=== PATIENT | male | born 1995 | race Caucasian/White ===

== ENCOUNTER 2022-01-25 18:10 | Emergency (ER) | payer MEDICAID ==
[~2022-01-25] VITALS: Ht 167.6 cm; Wt 86.2 kg
--- NOTE | 2022-01-25 18:50 | NUR ---
THE PATIENT IS SENT BY URGENT CARE FOR RIGHT 4TH FINGER AND LEFT 2ND FINGER LAC. OBTAINED LAC WITH GEOSPATIAL TECHNOLOGIST AT WORK. PAIN LEVEL 4/10. PT ON RA NO SIGNS OF DISTRESS OR LABORED BREATHING. PT A/OX3. WILL CONTINUE TO MONITOR.
--- NOTE | 2022-01-25 19:19 | NUR ---
JESICA FORTE AT PT'S BEDSIDE
--- NOTE | 2022-01-25 19:21 | NUR ---
REPORT GIVEN TO ANNETTE.
[2022-01-25] MEDS ORDERED: GELATIN SPONGE,ABSORBABLE 1 SPONGE SPONGE TP ONE (19:27)
[2022-01-25] MEDS ORDERED: TDAP [DIPH/PERTUSSIS/TET] 0.5 ML VIAL IM ONE ×2 (19:30→19:40)
--- NOTE | 2022-01-25 20:21 | NUR ---
Patient discharged to home in stable condition. Wound care done, Written and verbal after care instructions given. Patient verbalizes understanding of instruction. PT ambulatory with a steady gait
[2022-01-25 20:22] VITALS: BP 138/71
== END 2022-01-25 20:23 | disposition home or self-care (01) ==
LOC: ER 18:22
DX: S61.211A Laceration without foreign body of left index finger without damage to nail, initial encounter (principal); X58.XXXA Exposure to other specified factors, initial encounter; Y93.89 Activity, other specified; Y92.89 Other specified places as the place of occurrence of the external cause; Y99.8 Other external cause status
CPT/HCPCS: 90715